=== PATIENT | male | born 1935 | race Hispanic/Latino ===

== ENCOUNTER 2016-06-21 17:06 | Inpatient (IN) | payer MEDICARE ==
[2016-06-21 17:12] VITALS: BMI 32.2
--- NOTE | 2016-06-21 17:23 | ED PDOC ---
Arrival/HPI - General Historian: Patient, Spouse - General Chief Complaint: Altered Mental Status Time Seen by Provider: 06/21/16 17:22 - History of Present Illness Narrative History of Present Illness (Text): 06/21/16 17:29 81 yo M w h/o HTN and Alzhemer's dementia, recently diagnosed a fib presents to ER, brought in by his and son, with c/o AMS. Patient's and son state he has been increasingly confused, weak, unable to care for himself, decreased appetite, some aggressive and impulsive behavior, forgetfulness x >1week. states patient has started wandering outside at night, was found in the basement in the middle of the night a few days ago, did not know how he got there. Confusion tends to be worse in the evening. Patient's states they went to see Dr. Timothy Haro 06/14, who diagnosed the patient with new onset A fib, started him on Xarelto and lopressor. Patient's gave him 2 days of these new meds last week and then decided not to continue them because she thought the medications could be making him more confused and did not want to "overdose" him. Patient reportedly complained of Chest pain yesterday once. states patient has been having productive cough and was given z-emery last week. Patient currently denies any CP, SOB, abd pain, n/v/d, fevers, chills. He denies any pain or discomfort. (Bibi Martinez) Past Medical History - Provider Review Nursing Documentation Reviewed: Yes - Travel History Have you recently traveled outside [place] w/in the past 3 mons?: No - Infectious Disease Hx of Infectious Diseases: None - Tetanus Immunization Tetanus Immunization: Unknown - Cardiac Hx Peripheral Edema: Yes - Pulmonary Hx Respiratory Disorders: No - Neurological Hx Neurological Disorder: Yes Hx Dementia: Yes - HEENT Hx HEENT Disorder: No - Renal Hx Renal Disorder: No - Endocrine/Metabolic Hx Endocrine Disorders: No - Hematological/Oncological Hx Blood Disorders: Yes Hx Cancer: Yes (prostate ca with radiation tx) - Integumentary Hx Dermatological Disorder: No - Musculoskeletal/Rheumatological Hx Musculoskeletal Disorders: Yes Hx Falls: Yes Hx Unsteady Gait: Yes - Gastrointestinal Hx Gastrointestinal Disorders: No - Genitourinary/Gynecological Hx Genitourinary Disorders: No - Psychiatric Hx Psychophysiologic Disorder: No Hx Substance Use: No - Past Surgical History Past Surgical History: Unable to Obtain - Anesthesia Hx Anesthesia: Yes Hx Anesthesia Reactions: No Hx Malignant Hyperthermia: No - Suicidal Assessment Feels Threatened In Home Enviroment: No Family/Social History - Physician Review Nursing Documentation Reviewed: Yes Family/Social History: CVA/TIA, CAD/MA Smoking Status: Current Some Days Smoker Hx Alcohol Use: No Hx Substance Use: No Allergies/Home Meds Allergies/Adverse Reactions: Allergies No Known Allergies Allergy (Verified 06/21/16 17:12) Home Medications: Home Meds Medication Instructions Recorded Confirmed Memantine [Namenda] 20 mg PO DAILY 06/21/16 06/21/16 Triamterene/Hydrochlorothiazid 1 tab PO DAILY 06/21/16 06/21/16 [Maxzide 75 mg-50 mg Tablet] Review of Systems - Physician Review All systems were reviewed & negative as marked: Yes - Review of Systems Constitutional: Normal. absent: Fatigue Eyes: Normal. absent: Vision Changes Respiratory: absent: SOB, Cough, Sputum, Wheezing Cardiovascular: absent: Palpitations, Edema, Calf Pain, FLOOD Gastrointestinal: absent: Abdominal Pain, Diarrhea, Nausea, Vomiting Genitourinary Male: absent: Dysuria, Frequency Musculoskeletal: absent: Back Pain, Neck Pain Skin: absent: Rash, Skin Lesions Neurological: absent: Headache, Dizziness, Focal Weakness Endocrine: absent: Polyuria, Polydipsia Hemo/Lymphatic: absent: Easy Bleeding, Easy Bruising Psychiatric: absent: Anxiety, Depression Physical Exam Temperature: Afebrile Blood Pressure: Normal Pulse: Tachycardic Respiratory Rate: Normal Appearance: Positive for: Well-Appearing, Comfortable Pain Distress: None Mental Status: Positive for: Alert and Oriented X 3 - Systems Exam Head: Present: Atraumatic, Normocephalic Pupils: Present: PERRL Extroacular Muscles: Present: EOMI Conjunctiva: Present: Normal, Other (slightly right lateral palsy). No: Injected, Icteric Ears: Present: Normal Mouth: Present: Dry (slightly) Neck: Present: Normal Range of Motion. No: Meningeal Signs, JVD Respiratory/Chest: Present: Clear to Auscultation, Good Air Exchange. No: Respiratory Distress, Accessory Muscle Use Cardiovascular: Present: Murmurs, Normal S1, S2, Tachycardic Abdomen: Present: Normal Bowel Sounds. No: Tenderness, Distention, Peritoneal Signs, Rebound, Guarding Upper Extremity: Present: Normal Inspection. No: Cyanosis Lower Extremity: Present: Edema (2+ BL LE pitting edema, chronic venous stasis changes, no signs of cellulitis). No: CALF TENDERNESS Neurological: Present: CN II-XII Intact Skin: Present: Warm, Dry, Normal Color Psychiatric: Present: Alert, Oriented x 3, Other (slightly confused) Vital Signs Temp Pulse Resp BP Pulse Ox 06/21/16 18:38 98.6 F 97 H 18 131/78 100 06/21/16 17:29 99.5 F 115 H 16 129/63 100 Medical Decision Making - Lab Interpretations I have reviewed the lab results: Yes - EKG Interpretation Interpreted by ED Physician: Yes Type: 12 lead EKG Comparison: Different from prev. EKG ED Course and Treatment: Patient Seen With Resident: In agreement with resident note. Patient was seen and evaluated with resident, came up with plan and treatment together. EXAM: CT Angiography Chest With Intravenous Contrast FINDINGS: Artifacts: Motion artifact. Pulmonary arteries: No pulmonary embolism is identified. Some of the distal pulmonary arteries are poorly visualized. Aorta: No acute findings. No thoracic aortic aneurysm. Lungs: There is flattening of the right mainstem bronchus and to a lesser extent the left mainstem bronchus suggesting bronchomalacia. Compressive atelectasis in the posterior left lung. Pleural space: Large left pleural effusion. Heart: Moderate-sized pericardial effusion. Bones/joints: Spondylotic changes thoracic spine. No acute fracture. No dislocation. Soft tissues: Unremarkable. Lymph nodes: Unremarkable. No enlarged lymph nodes. Liver: Hepatic cysts. Some of the low attenuation foci in the liver are too small to characterize. Intraperitoneal space: Small amount of free fluid in the visualized upper abdomen. IMPRESSION: 1. No pulmonary embolism is identified. Some of the distal pulmonary arteries are poorly visualized. 2. Large left pleural effusion. 3. Moderate-sized pericardial effusion. 4. There is flattening of the right mainstem bronchus and to a lesser extent the left mainstem bronchus suggesting bronchomalacia. Dictated and Authenticated by: Tony Doty MD 06/21/2016 9:57 PM Eastern Time ([place] & [place]) (Jules Payne) 06/21/16 17:44 81 yo M w h/o HTN, new onset a fib not on AC presents with worsening AMS. CT head, CXR, labs, d-dimer. 06/21/16 19:31 D-dimer elevated at 4.79. CTA chest to r/o PE. GFR has not changed since 2014. RLL infiltrate on CXR - will start azithromycin and Rocephin. Dr. Payne spoke with Dr. Thornton, who accepts admission to her service. 06/21/16 22:04 CTA chest shows no PE. (Bibi Martinez) - Lab Interpretations Lab Results: 06/21/16 17:25 06/21/16 17:25 Lab Results 06/21/16 17:25: pO2 40, VBG pH 7.31 L, VBG pCO2 58.0, VBG HCO3 29.2 H, VBG Total CO2 31.0 H, VBG O2 Sat (Calc) 75.6 H, VBG Base Excess 1.6, VBG Potassium 4.3, Sodium 138.0, Chloride 107.0, Glucose 108, Lactate 0.9, FiO2 21.0, Venous Blood Potassium 4.3 06/21/16 17:25: D-Dimer, Quantitative 4.97 H 06/21/16 17:25: PT 12.3 H, INR 1.14 H, APTT 33.8 H 06/21/16 17:25: Sodium 140, Chloride 102, Potassium 4.2, Carbon Dioxide 28, Anion Gap 14, BUN 34 H, Creatinine 1.4, Est GFR ( Amer) 59, Est GFR (Non- Af Amer) 49, Random Glucose 106, Calcium 9.5, Total Bilirubin 1.0, AST 20, ALT 41, Alkaline Phosphatase 139 H, Troponin I < 0.01, Total Protein 7.0, Albumin 3.5, Globulin 3.5, Albumin/Globulin Ratio 1.0 L 06/21/16 17:25: WBC 7.3 D, RBC 3.62, Hgb 10.5 L, Hct 32.8 L, MCV 90.6, MCH 29.0 , MCHC 32.0, RDW 13.8, Plt Count 344, MPV 10.6, Gran % 75.1 H, Lymph % (Auto) 11.9 L, Grant % (Auto) 12.5 H, Eos % (Auto) 0.4 L, Baso % (Auto) 0.1, Gran # 5.51 , Lymph # 0.9 L, Grant # 0.9 H, Eos # 0.0, Baso # 0.01 06/21/16 17:19: POC Glucose (mg/dL) 103 - RAD Interpretation Radiology Orders: 06/21/16 17:23 HEAD W/O CONTRAST [CT] Stat CHEST PORTABLE [RAD] Stat 06/21/16 18:38 ANGIO CHEST PE PROTOCOL [CT] Stat - EKG Interpretation EKG Interpretation (Text): 06/21/16 21:38 A fib 96 bpm. Incomplete RBBB similar to EKG 2014. QT/QTc 318/401ms. T wave inversions II, III, aVF. (Bibi Martinez) - Medication Orders Current Medication Orders: Discontinued Medications Sodium Chloride (Sodium Chloride 0.9%) 1,000 mls @ 999 mls/hr IV .Q1H1M STA Stop: 06/21/16 18:45 Last Admin: 06/21/16 17:53 Dose: 999 mls/hr Ceftriaxone Sodium (Rocephin 1 Gram Ivpb) 1 gm in 100 mls @ 200 mls/hr IVPB STAT STA PRN Reason: Protocol Stop: 06/21/16 19:06 Last Admin: 06/21/16 18:44 Dose: 200 mls/hr Azithromycin (Zithromax 500mg In Ns) 500 mg in 250 mls @ 167 mls/hr IVPB STAT STA PRN Reason: Protocol Stop: 06/21/16 20:06 Iohexol (Omnipaque 350 150 Ml) Confirm Administered Dose 150 ml .ROUTE .K-MED ONE Stop: 06/21/16 19:47 Disposition/Present on Arrival - Present on Arrival Any Indicators Present on Arrival: No History of DVT/PE: No History of Uncontrolled Diabetes: No Urinary Catheter: No History of Decub. Ulcer: No History Surgical Site Infection Following: None - Disposition Have Diagnosis and Disposition been Completed?: Yes Disposition Time: 19:34 Patient Plan: Admission - Disposition Diagnosis: Pneumonia, Atrial fibrillation, Altered mental status Patient Problems: Current Active Problems Problem Status Onset Pneumonia Acute Atrial fibrillation Acute Altered mental status Acute Condition: SERIOUS
[2016-06-21 17:45] LABS: ADD MANUAL DIFF? NO
[2016-06-21] MEDS ORDERED: Sodium Chloride 0.9% 1,000 ML IV STA (17:45)
[2016-06-21 17:52] LABS: VENOUS BLOOD GAS BASE EXCESS 1.6 mmol/L (0.0-2.0); VENOUS BLOOD PH 7.31 (7.32-7.43)
[2016-06-21 18:02] LABS: ALKALINE PHOSPHATASE 139 U/L (38-133); ALT/SGPT 41 U/L (7-56); AST/SGOT 20 U/L (15-59); BLOOD UREA NITROGEN 34 mg/dL (7-21); CALCIUM 9.5 mg/dL (8.4-10.5); CARBON DIOXIDE 28 mmol/L (21-33); CHLORIDE 102 mmol/L (98-107); GFR AFRICAN-AMERICAN 59; GLUCOSE,RANDOM 106 mg/dL (70-110); POTASSIUM 4.2 mmol/L (3.6-5.0); SODIUM 140 mmol/L (132-148)
[2016-06-21 18:13] LABS: BASO # 0.01 K/mm3 (0.0-2.0); BASO % 0.1 % (0.0-3.0); EOS % 0.4 % (1.5-5.0); GRAN # 5.51 (1.4-6.5); GRAN % 75.1 % (50.0-68.0); HEMATOCRIT 32.8 % (42.0-52.0); LYMPH # 0.9 (1.2-3.4); LYMPH % 11.9 % (22.0-35.0); MEAN CELL VOLUME 90.6 fL (80.0-105.0); MEAN PLATELET VOLUME 10.6 fl (7.0-11.0); MONO # 0.9 (0.1-0.6); MONO % 12.5 % (1.0-6.0); PLATELET COUNT 344 10^3/uL (120.0-450.0); RED CELL DISTRIBUTION WIDTH 13.8 % (11.5-14.5); WHITE BLOOD COUNT 7.3 10^3/ul (4.5-11.0)
--- NOTE | 2016-06-21 18:17 | CT ---
PROCEDURE: CT HEAD WITHOUT CONTRAST. HISTORY: AMS COMPARISON: Noncontrast head CT performed 09/01/14, MR brain without contrast performed 09/01/14 TECHNIQUE: Axial computed tomography images were obtained through the head/brain without intravenous contrast. Radiation dose: Total exam DLP = 774.23 mGy-cm. This CT exam was performed using one or more of the following dose reduction techniques: Automated exposure control, adjustment of the mA and/or kV according to patient size, and/or use of iterative reconstruction technique. FINDINGS: Streak artifact obscures evaluation of the skullbase. HEMORRHAGE: No intracranial hemorrhage. BRAIN: Diffuse atrophy with prominence of the ventricles and sulci noted. No mass effect or edema. Dense intracranial atherosclerotic calcifications. Scattered periventricular and subcortical white matter hypodensities, which are nonspecific, but often seen with chronic microvascular ischemic disease. Please note that MRI with diffusion imaging is more sensitive in the detection of acute ischemic event. VENTRICLES: No hydrocephalus. CALVARIUM: Unremarkable. PARANASAL SINUSES: Complete opacification of the imaged portions, right maxillary sinus ; sinus contents appear heterogeneous. MASTOID AIR CELLS: Unremarkable as visualized. No inflammatory changes. OTHER FINDINGS: None. IMPRESSION: Streak artifact obscures evaluation of the skullbase. Generalized atrophy. Nonspecific white matter changes. Complete opacification of the imaged portions, right maxillary sinus ; sinus contents appear heterogeneous. Increased attenuation of the sinus contents may indicate proteinaceous material or fungal colonization. Please note that MRI with diffusion imaging is more sensitive in the detection of acute ischemic event.
[2016-06-21 18:30] LABS: TROPONIN I < 0.01 ng/mL
[2016-06-21] MEDS ORDERED: cefTRIAXone 1 gm 1 GM/100 ML BAG IVPB STA (18:37)
[2016-06-21] MEDS ORDERED: Azithromycin 500MG/NS 250ml 500 MG/250 ML BAG IVPB STA (18:37)
--- NOTE | 2016-06-21 18:56 | CARD ---
APPROVED REPORT EKG Measurement Heart [id number] <Conclusion> Atrial fibrillation Incomplete right bundle branch block Nonspecific ST and T wave abnormality, probably digitalis effect Abnormal ECG
[2016-06-21 19:54] LABS: INR 1.14 (0.93-1.08); PARTIAL THROMBOPLASTIN TIME 33.8 Seconds (23.7-30.8)
[2016-06-21 20:27] LABS: URINE APPEARANCE CLEAR (CLEAR); URINE BILIRUBIN NEGATIVE (NEGATIVE); URINE BLOOD NEGATIVE (NEGATIVE); URINE COLOR YELLOW (YELLOW); URINE GLUCOSE (UA) NEGATIVE (NEGATIVE); URINE KETONE NEGATIVE (NEGATIVE); URINE LEUKOCYTE ESTERASE NEGATIVE Leu/uL (NEGATIVE); URINE PROTEIN TRACE mg/dL (<30 mg/dL)
[2016-06-21 21:09] LABS: URINE AMORPHOUS SEDIMENT SMALL; URINE BACTERIA MOD (NEG); URINE RBC 0 - 2 /hpf (0-2); URINE WBC 0 - 2 /hpf (0-6)
[2016-06-21] MEDS ORDERED: Albuterol-Ipratrop 3 mg / 0.5 (3 ml) UD IH PRN (22:21)
[2016-06-21] MEDS ORDERED: Pneumococcal 23-Valent Vaccine IM ONE (22:52)
[2016-06-22 00:46] LABS: CHOLESTEROL 115 mg/dL (130-200)
[2016-06-22 01:19] LABS: TROPONIN I < 0.01 ng/mL
[2016-06-22] MEDS: Albuterol-Ipratrop 3 mg / 0.5 (3 ml) UD IH SCH ×2 (02:17→07:53)
[2016-06-22 07:19] LABS: ADD MANUAL DIFF? NO
[2016-06-22 07:27] LABS: BASO # 0.02 K/mm3 (0.0-2.0); BASO % 0.4 % (0.0-3.0); EOS % 0.4 % (1.5-5.0); GRAN % 70.8 % (50.0-68.0); HEMATOCRIT 31.4 % (42.0-52.0); LYMPH # 0.9 (1.2-3.4); LYMPH % 16.7 % (22.0-35.0); MEAN CORPUSCULAR HEMOGLOBIN 28.7 pg (25.0-35.0); MEAN CORPUSCULAR HGB CONC 31.8 g/dl (31.0-37.0); MEAN PLATELET VOLUME 10.1 fl (7.0-11.0); MONO # 0.7 (0.1-0.6); MONO % 11.7 % (1.0-6.0); PLATELET COUNT 306 10^3/uL (120.0-450.0); RED CELL DISTRIBUTION WIDTH 13.9 % (11.5-14.5); WHITE BLOOD COUNT 5.6 10^3/ul (4.5-11.0)
--- NOTE | 2016-06-22 07:53 | HP ---
HISTORY OF PRESENT ILLNESS: The patient is 81 years old with history of dementia. History taken fro m the family member. They state that he has been increasingly confused. He was recently seen by his primary care doctor and yeast stacker in the office, and he was found to have a new onset of irregula r heartbeat, that is AFib, so he was started on Xarelto and Lopressor. The patient she gave th is medication for 2 days. She thought that has increased his confusion so she stopped giving that me dication also. They did notice that he has low-grade fever and when he mentioned to the primary care doctor who gave Z-JADEN 1 week ago. He still has cough and congestion. Denies any chest pain. No sh ortness of breath. No nausea or vomiting. No history of diarrhea. No recent travel abroad. PAST MEDICAL HISTORY: Significant for: 1. Dementia. 2. Hypertension. 3. New onset of AFib. 4. Generalized osteoarthritis. ALLERGIES: He is not allergic to any medications. MEDICATIONS AT HOME: He is on Namenda 20 mg daily and Maxzide. SOCIAL HISTORY: He is , lives with his . Still smokes cigars here and there. Socially d rinks occasionally . REVIEW OF SYSTEMS: Significant for increasing confusion, mostly in the evening hours; complain t of shortness of breath. PHYSICAL EXAMINATION: GENERAL: He is awake and alert, somewhat forgetful. VITAL SIGNS: He is afebrile, pulse 97, respirations 18, blood pressure 131/78. LUNGS: Bilateral fair air flow in the upper lung region, decreased at right base. HEART: S1, S2 audible. ABDOMEN: Soft, nontender, no rebound, no guarding. NEUROLOGIC: The patient is awake and alert. LABORATORY DATA: WBC 7.3, hemoglobin 10.5, hematocrit 3 .8, platelets 344. PT 12.3, INR 1.14, PTT 33.8. D-Dimer 4.97. His ABG: pH 7.31, pCO2 58, pulse ox 75%. Chemistry: Sodium 140, potassi um 4.2, chloride 102, CO2 28, BUN 34, creatinine 1.4, blood sugar 106. LFTs are within normal limits . Alk phos 138. Urinalysis is unremarkable. His EKG is consistent with AFib. CT scan of the head: evaluation of the skull base, generalized atrophy, nonspecific white matter changes, and right maxillary sinus haziness. The patient had stress test done back in 09/2014 and it was negative. ASSESSMENT: 1. Altered mental status. 2. Community-acquired pneumonia. 3. Hypertension. 4. New onset of atrial fibrillation. PLAN: The patient will be admitted on telemetry. We will start him on aspirin 81 daily. Start him on nebulizer treatment. Continue him on Eliquis 2.5 b.i.d., Namenda 20 daily. We will start him on Rocephin and Zithromax. Order for CBC, CMP, thyroid profile, lipid profile in a.m., and I will also get CT scan of the sinuses and we will re-evaluate the patient in a.m. Sarah Thornton MD cc: [phone] TT: 06/22/2016 01:09:29 ak 06/22/2016 06:52:39
[2016-06-22 07:55] LABS: ALKALINE PHOSPHATASE 120 U/L (38-133); ALT/SGPT 34 U/L (7-56); AST/SGOT 20 U/L (15-59); BILIRUBIN,TOTAL 0.8 mg/dL (0.2-1.3); BLOOD UREA NITROGEN 26 mg/dL (7-21); CALCIUM 9.3 mg/dL (8.4-10.5); CARBON DIOXIDE 28 mmol/L (21-33); CHLORIDE 103 mmol/L (98-107); GFR AFRICAN-AMERICAN > 60; GLUCOSE,RANDOM 92 mg/dL (70-110); MAGNESIUM 2.2 mg/dL (1.7-2.2); PHOSPHOROUS 3.8 mg/dL (2.5-4.5); POTASSIUM 3.7 mmol/L (3.6-5.0); SODIUM 140 mmol/L (132-148); TOTAL PROTEIN 6.5 g/dL (5.8-8.3)
[2016-06-22 07:57] LABS: FREE T4 1.57 ng/dL (0.78-2.19)
[2016-06-22 08:10] LABS: PROSTATE SPECIFIC ANTIGEN 0.1 ng/mL (0.00-2.5); THYROID STIMULATING HORMONE 0.52 mIU/mL (0.46-4.68)
--- NOTE | 2016-06-22 08:24 | CT ---
PROCEDURE: CT Chest with contrast (Pulmonary Angiogram) HISTORY: D-dimer, pleuritic CP COMPARISON: None available. TECHNIQUE: Axial computed tomography images were obtained of the chest in the pulmonary arterial phase of enhancement. Coronal and sagittal reformatted images were created and reviewed. Intravenous contrast dose: 150 cc of Omni 350 Radiation dose: Total exam DLP = 765 mGy-cm. This CT exam was performed using one or more of the following dose reduction techniques: Automated exposure control, adjustment of the mA and/or kV according to patient size, and/or use of iterative reconstruction technique. FINDINGS: PULMONARY ARTERIES: Unremarkable. No pulmonary embolism. AORTA: No acute findings. No thoracic aortic aneurysm. LUNGS: Unremarkable. No nodule, mass or pulmonary consolidation. PLEURAL SPACES: There is a moderate size left pleural effusion and a small right effusion. There is some associated atelectasis at the left lung base. HEART: There is a small pericardial effusion LYMPH NODES: No lymphadenopathy. BONES, CHEST WALL: Unremarkable. No fracture or destructive lesion OTHER FINDINGS: The report concurs with the preliminary [facility] report IMPRESSION: No evidence of pulmonary embolus. Moderate size pleural effusion on the left with associated atelectasis. Small pericardial effusion
[2016-06-22] MEDS: Metoprolol Succinate 25 mg XL Tab PO SCH (08:26)
--- NOTE | 2016-06-22 08:35 | RAD ---
HISTORY: CP COMPARISON: 09/01/2014 FINDINGS: LUNGS: Opacity at left base. Possible pleural effusion and possible superimposed consolidation. Evaluation is technically limited. No right-sided opacity or pleural effusion. PLEURA: As above. Possible left pleural effusion. CARDIOVASCULAR: Normal. OSSEOUS STRUCTURES: No significant abnormalities. VISUALIZED UPPER ABDOMEN: Normal. OTHER FINDINGS: None. IMPRESSION: Pleural effusion with possible superimposed consolidation at left base. Technically limited examination. Followup advised.
[2016-06-22] MEDS ORDERED: Azithromycin 500MG/NS 250ml 500 MG/250 ML BAG IVPB SCH (10:00)
--- NOTE | 2016-06-22 12:33 | PN ---
DATE: 06/22/2016 SUBJECTIVE: The patient is a 81-year-old, seen and examined, sitting in chair, somewhat confused and disoriented. Eating and tolerating. No cough, no congestion. PHYSICAL EXAMINATION: VITAL SIGNS: The patient is afebrile, pulse 94, respirations 18, blood pressure 117/72. LUNGS: Bilateral fair airflow. No rhonchi or crackle. HEART: S1, S2 audible. ABDOMEN: Soft, nontender. No rebound, no guarding. NEUROLOGIC: He is awake and alert, able to answer simple questions. EXTREMITIES: Bilateral leg +2 edema. LABORATORY EXAMINATION: WBC is 5.6, hemoglobin 10, hematocrit 31.4, platelets of 306. Chemistry: S odium 140, potassium 3.7, chloride 103, CO2 of 28, BUN 26, creatinine 1.2, blood sugar of 92. Total cholesterol is 115. CT-angio is negative for embolus or infiltrate. ASSESSMENT: 1. Altered mental status, probably underlying dementia. 2. History of atrial fibrillation. 3. Bilateral pleural effusion. 4. History of hypertension. PLAN: We will continue the patient on aspirin and nebulizer treatment. Continue on Eliquis. We pratik l follow the urine cultures and blood cultures. Continue on Rocephin. I am awaiting MRI report. I will request for TCU evaluation for physical therapy, and start him on low-dose diuretic for his bila teral leg edema, and order for leg Doppler to rule out DVT. Sarah Thornton MD cc: [phone] TT: 06/22/2016 12:32:35 Confirmation # [id number] Dictation # [id number] melanie
[2016-06-22] MEDS: cefTRIAXone 1 gm 1 GM/100 ML BAG IVPB SCH (14:20)
--- NOTE | 2016-06-22 14:24 | MRI ---
PROCEDURE: MRI BRAIN WITHOUT CONTRAST HISTORY: AMS new onset AFIB COMPARISON: 09/01/2014 TECHNIQUE: Multiplanar, multisequence MR images of the brain were obtained without intravenous contrast enhancement. FINDINGS: HEMORRHAGE: There is a small focal deposits of hemosiderin in the left cerebellar hemisphere measuring 4 mm in diameter. This is consistent with an old hemorrhage or cavernous angioma. This is not clinically significant. This is unchanged DWI: No evidence of an acute or early subacute infarction. BRAIN PARENCHYMA: No mass effect or edema. No atrophy or chronic microvascular ischemic changes. VENTRICLES: Unremarkable. No hydrocephalus. CRANIUM: Unremarkable. ORBITS: Grossly unremarkable. PARANASAL SINUSES/MASTOIDS: There is complete opacification of the right maxillary sinus VASCULAR SYSTEM: Skull base flow voids intact. OTHER FINDINGS: None. IMPRESSION: No acute intracranial findings
--- NOTE | 2016-06-22 18:52 | CON ---
DATE: 06/22/2016 REASON FOR CONSULTATION: Recent onset atrial fibrillation. HISTORY OF PRESENT ILLNESS: The patient is a 81-year-old male who has a history of dementia, was rec ently diagnosed with atrial fibrillation and was placed on Xarelto by the primary physician 3 days ag o. The patient has been experiencing worsening of his confusion state over the past few days and on and off he becomes extremely confused. The patient was treated as an outpatient for pneumonia and wa s placed on Z-Nam; however, the patient was brought to the Emergency Room because of his worsening me ntal condition. The patient did report to the primary physician low grade fever as an outpatient. SOCIAL HISTORY: The patient is a smoker and he drinks occasionally according to the . The histo ry was obtained from the family including the and son and family friend at the bedside. HOME MEDICATIONS: Include: Lopressor, Xarelto, Bactrim and Namenda. CURRENT HOSPITAL MEDICATIONS: Aspirin 81 mg once a day, Eliquis 2.5 mg twice a day, Lasix 40 mg intr avenously once a day, Namenda 20 mg once a day, Rocephin 1 gram intravenously daily, Toprol-XL 25 mg once a day. REVIEW OF SYSTEMS: No vomiting or diarrhea, no chest pain, no history of stroke in the past and no h istory of heart attack in the past. PHYSICAL EXAMINATION: GENERAL: The patient is an elderly male who does not appear to be in acute distress. VITAL SIGNS: Blood pressure 125/82, heart rate 100, temperature 98.4, respiration 18. HEENT: Pale conjunctivae. NECK: No JVD. CHEST: Minimal rhonchi, . HEART: S1, S2 regular. ABDOMEN: Soft. EXTREMITIES: 2-3+ pitting edema. LABORATORY DATA: Hemoglobin and hematocrit 10 and 31.4, white count and platelet count 5.6 and 306, respectively. SMA-7 is within normal limits except for BUN of 26. TSH level is within normal limits . Free T4 is within normal limits. D-dimer is 4.97. INR is 1.14. Brain MRI revealed no acute intr acranial findings. Chest CT angio, no evidence of pulmonary embolus, moderate size pleural effusion on the left associated with atelectasis. Small pericardial effusion. EKG revealed atrial fibrillati on, incomplete right bundle branch block and nonspecific ST-T wave changes. ASSESSMENT: 1. Recent diagnosis of atrial fibrillation. 2. Altered mental status, rule out underlying sepsis. 3. Left pleural effusion. 4. Dementia. RECOMMENDATIONS: Continue current aspirin 81 mg once a day, Eliquis 2.5 mg twice a day, Lasix 40 mg intravenous once a day, Namenda 20 mg once a day, IV Rocephin at 1 gram daily, Toprol-XL 25 mg once a day. I will request an echocardiogram as well as venous Doppler of the lower extremities. The say hutson was discussed in details with the patient's and son at the bedside. Nishant Del Castillo MD cc: [id number] TT: 06/22/2016 18:51:28 Confirmation # [id number] Dictation # [id number] dn
[2016-06-23 06:53] LABS: ADD MANUAL DIFF? NO
[2016-06-23 07:15] LABS: ALKALINE PHOSPHATASE 120 U/L (38-133); ALT/SGPT 32 U/L (7-56); AST/SGOT 17 U/L (15-59); BASO # 0.02 K/mm3 (0.0-2.0); BASO % 0.4 % (0.0-3.0); BILIRUBIN,TOTAL 0.9 mg/dL (0.2-1.3); BLOOD UREA NITROGEN 25 mg/dL (7-21); CALCIUM 9.3 mg/dL (8.4-10.5); CARBON DIOXIDE 30 mmol/L (21-33); CHLORIDE 101 mmol/L (98-107); EOS % 0.7 % (1.5-5.0); GFR AFRICAN-AMERICAN > 60; GLUCOSE,RANDOM 90 mg/dL (70-110); GRAN # 3.46 (1.4-6.5); GRAN % 64.7 % (50.0-68.0); HEMATOCRIT 32.2 % (42.0-52.0); LYMPH # 1.2 (1.2-3.4); LYMPH % 22.6 % (22.0-35.0); MEAN CELL VOLUME 89.4 fL (80.0-105.0); MEAN CORPUSCULAR HEMOGLOBIN 28.6 pg (25.0-35.0); MEAN PLATELET VOLUME 10.2 fl (7.0-11.0); MONO # 0.6 (0.1-0.6); MONO % 11.6 % (1.0-6.0); PLATELET COUNT 316 10^3/uL (120.0-450.0); RED CELL DISTRIBUTION WIDTH 13.5 % (11.5-14.5); SODIUM 141 mmol/L (132-148); TOTAL PROTEIN 6.6 g/dL (5.8-8.3); WHITE BLOOD COUNT 5.4 10^3/ul (4.5-11.0)
[2016-06-23 07:27] LABS: POTASSIUM 4.1 mmol/L (3.6-5.0)
[2016-06-23] MEDS: Metoprolol Succinate 25 mg XL Tab PO SCH (08:26)
[2016-06-23] MEDS: cefTRIAXone 1 gm 1 GM/100 ML BAG IVPB SCH (09:42)
--- NOTE | 2016-06-23 13:15 | PN ---
DATE: 06/23/2016 The patient is a 81-year-old, seen and examined, lying in bed, seems to be comfortable. He is more a wake and alert, but somewhat confused. PHYSICAL EXAMINATION: VITAL SIGNS: He is afebrile, pulse 90, respirations 19, blood pressure 116/79. LUNGS: Bilateral good airflow, no rhonchi or crackle. HEART: S1, S2 audible. ABDOMEN: Soft, nontender, no rebound, no guarding. NEUROLOGIC: He is awake and alert, communicative. LABORATORY EXAMINATION: WBCs 5.4, hemoglobin 10.3, hematocrit 32, platelets 316. Chemistry: Sodium 141, potassium 4.1, chloride 101, CO2 30, BUN 25, creatinine 1.2, blood sugar of 90. Blood culture, urine cultures are negative. MRI of the brain is unremarkable. CT scan of the chest shows atelecta sis with a small pleural effusion. ASSESSMENT: 1. Status post altered mental status. 2. New onset of atrial fibrillation. 3. Dementia. 4. Deconditioning and difficulty walking. PLAN: I had a long discussion with patient's . She wants him to be in rehabilitation. She also wants him to be seen by electric razor mechanic and neurologist, so Dr. Yuen has been requested upon patien t's family's request and Dr. Veronica to follow up for his dementia. I will order for lipid profile an d B12 levels in the morning and TCU evaluation has been requested. If he is accepted, he can be de paz sferred to TCU. Sarah Thornton MD cc: [phone] TT: 06/23/2016 13:15:15 Confirmation # [id number] Dictation # [id number] en
--- NOTE | 2016-06-23 16:08 | PN ---
DATE: 06/23/2016 SUBJECTIVE: The patient is sleepy, but arousable. He denies any chest pain. PHYSICAL EXAMINATION: VITAL SIGNS: Blood pressure 116/79, heart rate 90, temperature 97.7, respirations 19. HEENT: Pale conjunctivae. CHEST: Absent breath sounds over the bases. HEART: S1, S2 irregular. EXTREMITIES: 2+ pitting edema. LABORATORIES: CBC: Hemoglobin and hematocrit 10.3 and 32.2. White count and platelet count are wit hin normal limit. Venous Doppler of lower extremity was performed but the report is still pending. Today's SMA-7 is within normal limits except for BUN of 25. Carotid Doppler was performed but the re port is still pending. ASSESSMENT: 1. Recently diagnosed atrial fibrillation. 2. Rule out congestive heart failure. 3. Altered mental status. 4. Consider underlying significant left pleural effusion. RECOMMENDATIONS: Continue current aspirin 81 mg once a day, Eliquis 2.5 mg twice daily, Lasix at 40 mg intravenously daily, IV Rocephin at 1 gram daily, Toprol-XL at 25 mg once a day. I would review t he echocardiographic study performed today and follow both carotid Doppler and venous Doppler of the lower extremities. In the meantime, the has requested Dr. Yuen to be the consulting cardiol ogist. Nishant Del Castillo MD cc: [phone] TT: 06/23/2016 16:07:20 Confirmation # [id number] Dictation # [id number] mn
--- NOTE | 2016-06-23 16:22 | CARD ---
APPROVED REPORT EXAM: Two-dimensional and M-mode echocardiogram with Doppler and color Doppler. INDICATION Atrial Fibrillation 2D DIMENSIONS Left Atrium (2D)4.5 (1.6-4.0cm)IVSd0.9 (0.7-1.1cm) LVDd4.7 (3.9-5.9cm)PWd1.0 (0.7-1.1cm) LVDs3.5 (2.5-4.0cm)FS (%) 26.8 % M-Mode DIMENSIONS Aortic Root3.50 (2.2-3.7cm)Aortic Cusp Exc.1.70 (1.5-2.0cm) Aortic Valve AoV Peak Cmukvqbc673.0cm/Polina Peak GR.9mmHgAI P 1/2 Hexd870re Mitral Valve E/A ratio0.0 TDI E/Lateral E'0.0E/Medial E'0.0 Pulmonary Valve PV Peak Mdswxufp71.4cm/sPV Peak Grad.1mmHg Tricuspid Valve TR Peak Tfeebgfo768yv/sRAP [id number] Peak Gr.17mmHg [id number] LEFT VENTRICLE The left ventricle is normal size. There is normal left ventricular wall thickness. The systolic function is mildly to moderately impaired. The Ejection Fraction is 40-45%. Septal Hypokinesis RIGHT VENTRICLE The right ventricle is borderline dilated. There is normal right ventricular wall thickness. RV Systolic function is moderately reduced. ATRIA The left atrium is moderately dilated. The right atrium is moderately dilated. AORTIC VALVE The aortic valve is moderately thickened. There is mild aortic regurgitation. MITRAL VALVE The mitral valve is mildly thickened. Mitral regurgitation is mild. GREAT VESSELS The aortic root is normal in size. PERICARDIAL EFFUSION There is moderate left pleural effusion. There is a trace circumferential pericardial effusion. <Conclusion> The left ventricle is normal size. There is normal left ventricular wall thickness. The systolic function is mildly to moderately impaired. The Ejection Fraction is 40-45%. Septal Hypokinesis RV Systolic function is moderately reduced. There is mild aortic regurgitation. Mitral regurgitation is mild.
--- NOTE | 2016-06-23 17:01 | US ---
HISTORY: Leg pain and swelling. Evaluate for DVT PHYSICIAN(S): Obi Dhaliwal MD. TECHNIQUE: Duplex sonography and color-flow Doppler with graded compression were used to evaluate the deep venous systems of both lower extremities. The exam is limited by the patient's inability to cooperate and edema FINDINGS: The visualized deep venous systems of both lower extremities are sonographically normal and compressible. Normal wave forms and augmentation are seen. There is no sonographic evidence for deep venous thrombosis in the visualized segments of both lower extremities. IMPRESSION: No sonographic evidence for deep venous thrombosis in the visualized segments of both lower extremities.
--- NOTE | 2016-06-23 17:03 | US ---
PROCEDURE: Bilateral carotid artery duplex ultrasound HISTORY: Carotid stenosis syncope PHYSICIAN(S): Obi Dhaliwal MD. TECHNIQUE: Duplex sonography and color-flow Doppler were used to evaluate the carotid bifurcations and limited segments of the vertebral arteries bilaterally. FINDINGS: There is mild smooth heterogeneous plaque noted at the carotid bifurcations bilaterally. The peak systolic velocity in the proximal right internal carotid artery is 73 cm/sec. This corresponds to a 20 to 39% proximal right ICA stenosis. Normal systolic velocities are noted in the proximal right external carotid artery. There is antegrade flow in the right vertebral artery. The peak systolic velocity in the proximal left internal carotid artery is 53 cm/sec. This corresponds to a 20 to 39% proximal left ICA stenosis. Normal systolic velocities are noted in the proximal left external carotid artery. There is antegrade flow in the left vertebral artery. IMPRESSION: 1. Bilateral 20-39% proximal ICA stenoses. 2. Antegrade flow in both vertebral arteries.
--- NOTE | 2016-06-23 19:58 | CON ---
DATE: 06/23/2016 HISTORY OF PRESENT ILLNESS: This is a 81-year-old male with past medical history of hypertension, ne w onset AFib, arthritis, and dementia, who was recently seen in the office. The patient went to card iologist's office and found irregular heartbeat and was started on Xarelto and Lopressor. I was call ed to evaluate the patient. PAST MEDICAL HISTORY: Dementia, hypertension, AFib, arthritis. ALLERGIES: Not allergic to any medications. PHYSICAL EXAMINATION: HEENT: Normocephalic, atraumatic. NECK: Supple. NEUROLOGIC: Alert, awake, oriented x 3. Cranial nerves II through XII were tested. Pupils reactive . EOM intact. Visual gerber full. No facial asymmetry. Tongue midline. Motor examination: Moves all the extremities spontaneously. Deep tendon reflexes 1+. Both plantars are downgoing. Sensory appears intact. Cerebellar: Gait deferred. IMPRESSION: Dementia. The patient is with agitation so we will start Seroquel [address] [facility]. CAT scan and MRI of the head was done and they were negative. PLAN: Workup in progress. We will follow up. Mark Veronica MD cc: [phone] TT: 06/23/2016 19:58:04 Confirmation # [id number] Dictation # [id number] sn
[2016-06-24 07:34] VITALS: PULSE 63; RESP 18; TEMP 98.4; O2SAT 100
[2016-06-24 07:39] LABS: CHOLESTEROL 125 mg/dL (130-200)
[2016-06-24] MEDS: cefTRIAXone 1 gm 1 GM/100 ML BAG IVPB SCH (10:45)
[2016-06-24] MEDS: Metoprolol Succinate 25 mg XL Tab PO SCH (10:46)
[2016-06-24 11:01] VITALS: BP 119/70
--- NOTE | 2016-06-24 14:31 | CON ---
DATE: 06/24/2016 REQUESTING PHYSICIAN: Dr. Thornton. REASON FOR CONSULTATION: Recent onset atrial fibrillation. HISTORY OF PRESENT ILLNESS: This is a 81-year-old man with a history of moderate dementia who was br ought to the Emergency Room because of worsening confusion and weakness. He reportedly also has had a productive cough. His primary care physician is Dr. Cooley. According to the chart, he was seen by Dr. Aguirre as an outpatient recently and found to be in atrial fibrillation. He was started on metoprolol and Xarelto. Family felt that these medications were increasing his confusion and became concerned. He is seen on remote telemetry, resting comfortably in bed. He is seen at the request o f his family. He is conversant and answers questions appropriately, but cannot recall all details of his past history. Most of that is obtained via the chart. PAST MEDICAL HISTORY: Notable for prostate cancer requiring radiation therapy. He also has a histor y of arthritis and hypertension. MEDICATIONS: At home included metoprolol 25 mg b.i.d., Namenda 10 mg b.i.d., Dyazide 3 times a week, Xarelto 15 mg daily. ALLERGIES: None. SOCIAL HISTORY: He is an active smoker. He denies alcohol use. He is and lives with his wi fe. He is retired. FAMILY HISTORY: Both parents are from cancer. Full details are unclear. REVIEW OF SYSTEMS: Ten point review of systems is otherwise unremarkable. PHYSICAL EXAMINATION: GENERAL: He is an elderly man who appears comfortable at rest. VITAL SIGNS: His blood pressure is 120/70 with a pulse of 60 and irregularly irregular, respirations are 14 and he is afebrile. HEENT: Normocephalic, atraumatic. NECK: Supple, no JVD noted. CHEST: Bilateral scattered rhonchi heard. HEART: PMI in normal position. A systolic murmur is noted at the base as well as at the apex. ABDOMEN: Soft, nontender with normoactive bowel sounds. EXTREMITIES: No edema. SKIN: Warm and dry. PSYCHIATRIC: Normal mood and affect. NEUROLOGIC: Somewhat flat affect. Oriented to person, place and time. No gross motor or sensory de ficits appreciable. DIAGNOSTIC DATA: Chest x-ray reveals possible left infiltrate as well as a left pleural effusion. E lectrocardiogram reveals atrial fibrillation with nonspecific intraventricular conduction delay and n onspecific ST-T abnormalities. A carotid ultrasound revealed mild bilateral ICA stenosis. Echocardi ogram reportedly showed mildly reduced LV systolic function with septal hypokinesis, mild aortic insu fficiency, mild mitral regurgitation and left pleural effusion. Recent blood work reveals a white co unt of 5.4, hemoglobin and hematocrit 10.2 and 32.2 with a platelet count 361,000. Potassium 4.1, BU N and creatinine are 25 and 1.2. Cholesterol 125 with a LDL of 84 and an HDL of 27. IMPRESSION: 1. Atrial fibrillation, duration uncertain, currently asymptomatic. This is likely on the basis of age and hypertensive heart disease. 2. Mild multivalvular heart disease. 3. Baseline dementia. 4. Apparent pneumonia. 5. Recent worsening confusion, etiology uncertain. Doubt any significant role of beta harley and X arelto. 6. Rest of problems as noted. RECOMMENDATIONS: His current medications should continue. He has been placed on Eliquis in hospital , which is a reasonable alternative for him. Low dose beta harley therapy should continue as well f or heart rate control. I would not make aggressive attempts at conversion to sinus rhythm given his asymptomatic status and general condition. Gentle diuresis and antibiotics should continue as well. We will be happy to follow him through his hospital course and make further recommendations as appro priate. Lloyd Yuen MD cc: [phone] TT: 06/24/2016 14:30:45 Confirmation # [id number] Dictation # [id number] melanie
--- NOTE | 2016-06-24 23:02 | DS ---
HISTORY OF PRESENT ILLNESS: The patient is a 81-year-old, seen and examined. Seemed to be much more awake, alert, oriented. He was brought in because of altered mental status. The patient was recent ly diagnosed with AFib. He was started on some anticoagulant, but stopped that. She thought c onfusion was because of that. Initial workup was done that is negative. The patient is found to be deconditioned, so transferred to TCU for further evaluation. PHYSICAL EXAMINATION: GENERAL: The patient is awake and alert, communicative. VITAL SIGNS: He is afebrile, pulse 63, respirations 18, blood pressure 119/70. LUNGS: Bilateral good airflow, no rhonchi or crackle. HEART: S1, S2 audible. No murmur. ABDOMEN: Soft, nontender, no rebound, no guarding. NEUROLOGIC: The patient is awake and alert, communicative, ambulatory with unstable gait. LABORATORY EXAM: His cholesterol was 125, HDL is 27, LDL is 84. ASSESSMENT AND PLAN: 1. Status post altered mental status. 2. Hypertension. 3. Newly diagnosed atrial fibrillation. 4. Pleural effusion. PLAN: The patient is being transferred to TCU where he will receive physical therapy and I will foll ow up patient in TCU. Sarah Thornton MD cc: [phone] TT: 06/24/2016 23:02:12 roseann
--- NOTE | 2016-06-26 15:19 | PQF SEPSIS ---
06/26/16 Dr. Magdalene Ann's consult of 06/22 states "altered mental status, rule out sepsis. " Was sepsis ruled out, ruled in, undetermined? If sepsis was ruled in, was this present on admission? If sepsis was ruled out, please clarify etiology of altered mental status ( pneumonia? Alzheimer's dementia? Other?). Thank you. Clarification of your documentation is requested to better reflect the severity of illness and intensity of treatment of your patient. Indicators present [] Temp < 96.8 or > 100.4 [] WBC count > 12,000/mm3 or <000/mm3 or 10% immature neutrophils [] Heart Rate > 90 [] Respiratory Rate > 20 [] Fever or hypothermia [] Chills [] Positive blood cultures [] Hypotension [] Metabolic acidosis (Elevated lactate level, anion gap or reduced blood pH) [] Acute confusion /Altered Mental Status [] Shock [] Other: [] Location in the medical record that reflects the above clinical findings: [] Treatment Provided: [] PHYSICIAN'S RESPONSE Based on your medical judgment of the clinical indicators outlined above, are you treating this patient for a known or suspected: [] Sepsis / Septicemia Please specify organism if known [] [] SIRS (Systemic Inflammatory Response Syndrome) [] Severe Sepsis (Sepsis with Associated Organ Dysfunction) [] Fever of Unknown Origin [] Other, please indicate: [] [x] If Unable to Determine, please check the box, sign and date. Present On Admission (POA) Indicator: [x] Present at the time of admission [] Not present at the time of admission [] Clinically Undetermined In responding to this query, please exercise your independent professional judgment. The fact that a question is asked does not imply that any particular answer is desired or expected. Thank you for your clarification on this documentation. If you have any questions please call:[ ] * Thank you, [ ] nurse aide evaluator ODETTE
--- NOTE | 2016-06-27 13:16 | PQF GENQUE ---
Dr. Thornton, Please clarify your previous query answer on this patient. You checked off "undetermined," I presume for the sepsis question. However, you also checked "present on admission." Is this referring to the altered mental status? If so, please clarify the etiology of altered mental status that was present on admission. Thank you. Clarification of your documentation is requested to better reflect the severity of illness and intensity of treatment of your patient. Indicators present [] Specify: [] [] Specify: [] [] Specify: [] [] Specify: [] Location in the medical record that reflects the above clinical findings: [] Treatment Provided: [] PHYSICIAN'S RESPONSE Based on your medical judgment of the clinical indicators outlined above please clarify the following: [] Practitioner response [] If unable to determine, please check the box, sign and date. Present On Admission (POA) Indicator: [] Present at the time of admission [x] Not present at the time of admission [] Clinically Undetermined In responding to this query, please exercise your independent professional judgment. The fact that a question is asked does not imply that any particular answer is desired or expected. Thank you for your clarification on this documentation. If you have any questions please call:[ ] * Thank you, [ ] sling operator ODETTE
== END 2016-06-24 15:18 | DRG 56 ==
LOC: ED 17:06 → ERH 19:27 → 2RSO 23:08 → 5RNO 06-23 18:45
PROVIDERS: ADMIT Internal Medicine; ATTEND Internal Medicine
DX: G30.9 Alzheimer's disease, unspecified (principal); J18.9 Pneumonia, unspecified organism; J90 Pleural effusion, not elsewhere classified; I31.3 Pericardial effusion (noninflammatory); I11.9 Hypertensive heart disease without heart failure; F02.81 Dementia in other diseases classified elsewhere, unspecified severity, with behavioral disturbance; I50.9 Heart failure, unspecified; I48.91 Unspecified atrial fibrillation; M15.9 Polyosteoarthritis, unspecified; Z85.46 Personal history of malignant neoplasm of prostate; Z79.82 Long term (current) use of aspirin; F17.290 Nicotine dependence, other tobacco product, uncomplicated; Z92.3 Personal history of irradiation

== ENCOUNTER 2016-06-24 15:03 | Inpatient (IN) | payer OTHER, MEDICARE ==
[2016-06-24 15:59] VITALS: BMI 33.4
[2016-06-24] MEDS ORDERED: Albuterol-Ipratrop 3 mg / 0.5 (3 ml) UD IH PRN (16:07)
[2016-06-25] MEDS: cefTRIAXone 1 gm 1 GM/100 ML BAG IVPB SCH (05:15)
[2016-06-25] MEDS: Metoprolol Succinate 25 mg XL Tab PO SCH (08:28)
[2016-06-25] MEDS ORDERED: cefTRIAXone 1 gm 1 GM/100 ML BAG IVPB SCH (10:00)
--- NOTE | 2016-06-25 21:11 | PN ---
DATE: 06/25/2016 SUBJECTIVE: The patient has no complaints of any headaches or dizziness. He says he feels well. No nausea. He has been tolerating his diet. He sleeps well. PHYSICAL EXAMINATION: VITAL SIGNS: Temperature is 98.4, pulse is 73, blood pressure 99/72, respiration is 18. GENERAL: The patient comfortable, in no acute distress. HEENT: Anicteric sclerae. Moist mucosa. NECK: No JVD or adenopathy. CARDIAC: S1/S2. No murmurs. No rubs. Regular. RESPIRATORY: Clear to auscultation bilaterally. No wheezes, rales, or rhonchi. Good air entry. ABDOMEN: Bowel sounds are positive, soft, nontender, and nondistended. EXTREMITIES: No edema. Has 1+ pulses. ASSESSMENT: 1. Delirium, improved. 2. Hypertension. 3. Atrial fibrillation. PLAN: The patient is on aspirin. He is going to continue Aricept for dementia. He is on Eliquis fo r his atrial fibrillation. He is going to be on Namenda for his dementia. The patient is on Tylenol as needed. He is on the transitional care unit and will continue there. Bright Neil MD cc: [phone] TT: 06/25/2016 21:10:45 Confirmation # [id number] Dictation # [id number] mn
[2016-06-26] MEDS: cefTRIAXone 1 gm 1 GM/100 ML BAG IVPB SCH (05:13)
[2016-06-26] MEDS: Metoprolol Succinate 25 mg XL Tab PO SCH (10:53)
--- NOTE | 2016-06-26 13:22 | PN ---
DATE: 06/26/2016 The patient is a 81-year-old, seen and examined, lying in bed, comfortable, eating and tolerating. PHYSICAL EXAMINATION: VITAL SIGNS: He is afebrile, pulse 82, respirations 18, blood pressure 96/65. LUNGS: Bilateral good airflow, no rhonchi or crackle. HEART: S1, S2 audible. ABDOMEN: Soft, nontender, obese. No hepatosplenomegaly. NEUROLOGIC: He is awake and alert, communicative. ASSESSMENT: 1. Status post altered mental status, seems to be doing well. 2. Dementia. 3. Bilateral leg edema. 4. History of atrial fibrillation. 5. Hypertension. 6. Negative blood culture and urine culture. PLAN: I will discontinue his IV antibiotic. We will continue to diurese him. Encourage physical th erapy and will reevaluate patient in a.m. Sarah Thornton MD cc: [phone] TT: 06/26/2016 13:21:33 Confirmation # [id number] Dictation # [id number] en
[2016-06-27] MEDS: Enoxaparin 30 mg Syringe SC SCH (05:13)
[2016-06-27] MEDS: Metoprolol Succinate 25 mg XL Tab PO SCH (08:54)
[2016-06-27] MEDS ORDERED: Enoxaparin 30 mg Syringe SC SCH (10:00)
--- NOTE | 2016-06-27 12:29 | CON ---
DATE: 06/27/2016 HISTORY OF PRESENT ILLNESS: This is a 81-year-old male with past medical history of dementia, prosta te cancer, arthritis, and hypertension, transferred to [facility] for rehab. The patient was recently foun d to be in atrial fibrillation and was started on metoprolol and Xarelto, and called to evaluate the patient sitting comfortably. PAST MEDICAL HISTORY: Prostate cancer, arthritis, hypertension. ALLERGIES: None. SOCIAL HISTORY: Smokes, does not drink. REVIEW OF SYSTEMS: A 10-point review of system was negative. PHYSICAL EXAMINATION: HEENT: Normocephalic, atraumatic. NECK: Supple. NEUROLOGIC: Alert, awake, oriented x 3. No aphasia. Cranial nerves II-XII were tested. Pupils rio ctive. EOM intact. Visual gerber full. No facial asymmetry. Tongue is midline. Spontaneous move ment of the extremities noted. Deep tendon reflexes 1+. Both plantars are downgoing. Sensory appea rs intact. Cerebellar gait deferred. IMPRESSION: The patient's syncope less likely atrial fibrillation, and also dementia superimposed on intermittent confusional state. Continue present management. We will follow up. Mark Veronica MD cc: [id number] TT: 06/27/2016 12:28:51 Confirmation # [id number] Dictation # [id number] melanie
--- NOTE | 2016-06-27 13:06 | PN ---
DATE: 06/27/2016 SUBJECTIVE: The patient is a 81-year-old, seen and examined, sitting in chair, seems to be comfortab le, awake and alert, communicative, answers simple questions. PHYSICAL EXAMINATION: VITAL SIGNS: He is afebrile, pulse 74, respirations 18, blood pressure 83/57. LUNGS: Bilateral fair airflow, no rhonchi or crackle. HEART: S1, S2 audible. ABDOMEN: Soft, nontender, no rebound. Obese. No hepatosplenomegaly. NEUROLOGIC: The patient is awake and alert, communicative, answers simple questions. ASSESSMENT: 1. Status post altered mental status. 2. Worsening of dementia. 3. Bilateral leg edema. 4. Hypotension. PLAN: We will continue patient on current medication that includes aspirin, Aricept. Continue him o n Eliquis for the recent diagnosis of A-fib. Since his blood pressure is running low, I will even di scontinue his metoprolol, reevaluate patient in a.m. Continue physical therapy. Sarah Thornton MD cc: [phone] TT: 06/27/2016 13:05:11 Confirmation # [id number] Dictation # [id number] tn
[2016-06-28] MEDS: Enoxaparin 30 mg Syringe SC SCH (05:41)
--- NOTE | 2016-06-28 09:26 | PN ---
DATE: 06/28/2016 SUBJECTIVE: The patient is seen sitting in bed in the TCU. He is currently comfortable. He does quiroz ve some exertional dyspnea. He is unaware of any palpitations. CURRENT MEDICATIONS: Include Aricept 5 mg daily, aspirin once daily, Eliquis 2.5 mg b.i.d., DuoNeb i nhaler, Lovenox once daily, Namenda 28 mg daily, Seroquel 25 mg at bedtime. OBJECTIVE: GENERAL: He is an elderly man who appears comfortable at rest. VITAL SIGNS: His blood pressure is 104/74 with a pulse of 80, respirations are 16. He is currently afebrile. HEENT: No JVD. CHEST: A few scattered rhonchi. HEART: PMI displaced laterally with an irregularly irregular rhythm. ABDOMEN: Soft and nontender with normoactive bowel sounds. EXTREMITIES: No edema. DIAGNOSTIC DATA: No blood work pending from this morning. IMPRESSION: 1. Community-acquired pneumonia, remains on antibiotic therapy. 2. Atrial fibrillation, which apparently is of recent onset. Beta harley has been withheld given t ransient low blood pressure yesterday. His heart rate appears to be controlled at present. 3. Mild mitral and aortic insufficiency. 4. Baseline dementia. RECOMMENDATIONS: At this time, his current management can continue. Aspirin can be withheld to redu ce risk of bleeding. Given his body weight, 5 mg b.i.d. of Eliquis would be appropriate. Lovenox ca n be withheld for DVT prophylaxis, given the use of Eliquis. If his rate increases, low dose rate co ntrol therapy can be reinstituted. In general, conservative care appears most appropriate. Lloyd Yuen MD cc: [phone] TT: 06/28/2016 09:25:41 Confirmation # [id number] Dictation # [id number] mn
--- NOTE | 2016-06-28 19:38 | PN ---
DATE: 06/28/2016 The patient is a 81-year-old, seen and examined while in therapy department. According to therapist, doing well. PHYSICAL EXAMINATION: VITAL SIGNS: He is afebrile, pulse 84, respirations 14, blood pressure 96/60. LUNGS: Bilateral good airflow, no rhonchi or crackle. HEART: S1, S2 audible. ABDOMEN: Soft, obese, nontender, no rebound, no guarding. EXTREMITIES: Bilateral legs +2 edema. ASSESSMENT: 1. Status post altered mental status. 2. Worsening dementia. 3. Bilateral leg edema. 4. New onset of atrial fibrillation. PLAN: We will continue patient on Aricept. He is on nebulizer treatment. He is getting Eliquis. H e is on Namenda. I will continue him on Seroquel at bedtime and discussed with patient's at [facility]. We will keep his leg elevated and apply MARLIN bandage. Will reevaluate patient in a.m. Sarah Thornton MD cc: [phone] TT: 06/28/2016 19:37:45 Confirmation # [id number] Dictation # [id number] en
[2016-06-29 12:49] VITALS: RESP 18
--- NOTE | 2016-06-29 17:42 | PN ---
DATE: 06/29/2016 SUBJECTIVE: The patient is a 81-year-old sitting in chair, comfortable, has bilateral leg swelling, no nausea, vomiting, no diarrhea. Eating and tolerating. PHYSICAL EXAMINATION: VITAL SIGNS: He is afebrile, pulse 85, respirations 18, blood pressure 106/63. LUNGS: Bilateral good airflow, no rhonchi or crackle. HEART: S1, S2 audible. ABDOMEN: Soft, nontender, no rebound, no guarding. NEUROLOGIC: The patient is awake and alert, communicative. EXTREMITIES: Bilateral leg +2 edema. ASSESSMENT AND PLAN: 1. Dementia. 2. Chronic atrial fibrillation, currently on Eliquis. He is getting Namenda and Aricept. Will disc ontinue his nebulizer treatment. Discussed with the patient's nurse taking care of him. Apply his b andage and keep legs elevated. Continue physical therapy and will reevaluate the patient in a.m. Sarah Thornton MD cc: [phone] TT: 06/29/2016 17:42:17 Confirmation # [id number] Dictation # [id number] melanie
--- NOTE | 2016-06-30 14:59 | PN ---
DATE: 06/30/2016 The patient is a 81-year-old, seen and examined sitting in chair. Seems to be comfortable. His leg swelling has improved. Mental status is same. PHYSICAL EXAMINATION: GENERAL: He his awake and alert, able to answer simple questions. VITAL SIGNS: He is afebrile, pulse 97, respirations 18, blood pressure 99/69. LUNGS: Bilateral fair airflow, no rhonchi or crackle. HEART: S1, S2 audible. ABDOMEN: Soft, nontender, no rebound, no guarding. NEUROLOGIC: The patient is awake and alert, able to communicate. EXTREMITIES: Bilateral legs, +1 edema. ASSESSMENT AND PLAN: 1. Status post altered mental status. Seems to be improving. 2. Dementia. 3. Atrial fibrillation. He is not on any rate controlling medication. I will start him on digoxin. Will give first dose today. Because of his low blood pressure, he cannot be given beta harley or verapamil/calcium channel harley. Will start him on digoxin and possible discharge plan in the a.m. Sarah Thornton MD cc: [phone] TT: 06/30/2016 14:58:20 Confirmation # [id number] Dictation # [id number] mn
[2016-07-01 06:56] VITALS: BP 102/68; PULSE 69; TEMP 98.4; O2SAT 97
[2016-07-01] MEDS ORDERED: Digoxin 125 mcg (0.125 mg) Tab PO SCH (14:00)
--- NOTE | 2016-07-01 20:02 | DS ---
The patient is 81 years old, who was admitted with altered mental status. His neurological workup so far was negative. He did not have any positive cultures. The initial impression was possible pneum onia; however, CT scan was negative other than bilateral basilar atelectasis, no infiltrate was found . Blood culture done on 06/21 and urine culture were negative also. The patient was evaluated by alysha rologist also. The patient was started on Namenda and Aricept was added. The patient was recently d iagnosed with AFib. He was started on Eliquis and metoprolol, but the patient stopped giving it because she thought that has increased his confusion and he was brought to Emergency Room. He was f ound to have bilateral leg edema, although echo was unremarkable, probably is related to his obesity and being nonambulatory. PHYSICAL EXAMINATION: Today: GENERAL: He is awake and alert, communicative, gets forgetful by the end of the day. VITAL SIGNS: He is afebrile, pulse 69, respirations 18, blood pressure 102/68. LUNGS: Bilateral fair airflow, no rhonchi or crackle. HEART: S1, S2 audible. No murmur. ABDOMEN: Soft, obese, nontender, no rebound, no guarding. NEUROLOGIC: He is awake and alert, communicative. EXTREMITIES: Bilateral leg +1 edema. ASSESSMENT AND PLAN: 1. Worsening dementia. 2. New onset of atrial fibrillation. 3. Hypotension. PLAN: Will give metoprolol 12.5 daily for rate control. He will continue Eliquis. He is given a pr escription of Aricept 5 mg daily. He is to continue Namenda. He will be discharged home today to fo llow up with his PMD as an outpatient. Sarah Thornton MD cc: [phone] TT: 07/01/2016 20:01:02 roseann
== END 2016-07-01 14:47 | disposition home or self-care (01) | DRG 884 ==
LOC: TRCU 15:03
PROVIDERS: ADMIT Internal Medicine; ATTEND Internal Medicine
PROC: F07Z9ZZ Gait Training/Functional Ambulation Treatment (ICD-10-PCS; principal; 2016-06-25)
PROC: F08Z4ZZ Home Management Treatment (ICD-10-PCS; 2016-06-26)
DX: F03.90 Unspecified dementia, unspecified severity, without behavioral disturbance, psychotic disturbance, mood disturbance, and anxiety (principal); J18.9 Pneumonia, unspecified organism; Z79.2 Long term (current) use of antibiotics; I48.2 Chronic atrial fibrillation; Z79.01 Long term (current) use of anticoagulants; I08.0 Rheumatic disorders of both mitral and aortic valves; I10 Essential (primary) hypertension; R60.0 Localized edema; I95.9 Hypotension, unspecified; M19.90 Unspecified osteoarthritis, unspecified site; Z85.46 Personal history of malignant neoplasm of prostate; E66.9 Obesity, unspecified

== ENCOUNTER 2016-09-13 15:56 | Emergency (ER) | payer MEDICARE ==
[2016-09-13 16:08] VITALS: BP 151/78; PULSE 84; RESP 18; TEMP 98; O2SAT 97; BMI 30.5
--- NOTE | 2016-09-13 17:21 | CT ---
PROCEDURE: CT HEAD WITHOUT CONTRAST. HISTORY: trauma COMPARISON: Brain MRI without contrast performed 06/22/16, noncontrast head CT performed 06/21/16 TECHNIQUE: Axial computed tomography images were obtained through the head/brain without intravenous contrast. Radiation dose: Total exam DLP = 822.62 mGy-cm. This CT exam was performed using one or more of the following dose reduction techniques: Automated exposure control, adjustment of the mA and/or kV according to patient size, and/or use of iterative reconstruction technique. FINDINGS: HEMORRHAGE: No intracranial hemorrhage. BRAIN: Diffuse atrophy with prominence of the ventricles and sulci noted. No mass effect or edema. Dense intracranial atherosclerotic calcifications. 4 mm probable right basal ganglia lacunar infarct, appears chronic. Mild scattered white matter hypodensities, which are nonspecific, but often seen with chronic microvascular ischemic disease. Please note that MRI with diffusion imaging is more sensitive in the detection of acute ischemic event. VENTRICLES: No hydrocephalus. CALVARIUM: Unremarkable. PARANASAL SINUSES: Complete opacification of the included portions of the right maxillary sinus including high density contents. MASTOID AIR CELLS: Unremarkable as visualized. No inflammatory changes. OTHER FINDINGS: None. IMPRESSION: Generalized atrophy. Nonspecific white matter changes. 4 mm probable right basal ganglia lacunar infarct, appears chronic. Complete opacification of the imaged portions, right maxillary sinus ; sinus contents appear heterogeneous. Increased attenuation of the sinus contents may indicate proteinaceous material or fungal colonization.
--- NOTE | 2016-09-13 18:09 | ED PDOC ---
Arrival/HPI - General Chief Complaint: Trauma Time Seen by Provider: 09/13/16 16:04 Historian: Patient, Family - History of Present Illness Narrative History of Present Illness (Text): 09/13/16 19:43 81 yo M w/ pmh of dementia and A fib, presents with head injury after he missed his footing as he was walking down the stairs and fell backwards, hitting the back of his head. States that he denies having any symptoms prior to the fall. Prior to the fall, denies any dizziness, headache, CP, SOB, palpitations, fever , chills, N/V. As per pt and family, pt has been feeling well. He was recently admitted to the hospital and was d/c 1 week ago for pneumonia, during that time , the pt's dementia was worse and he was unable to perform ADLs and was very confused. Since his d/c the pt has been doing well at home and can perform his normal ADLs without any assistance, he has also had improvement of his memory. Here in the ER the pt only c/o a mild headache where he hit his head. Denies any LOC, nausea, neck pain, back pain, chest pain, or any other injury. Of note , pt states that he takes xarelto. Past Medical History - Provider Review Nursing Documentation Reviewed: Yes - Infectious Disease Hx of Infectious Diseases: None - Tetanus Immunization Tetanus Immunization: Up to Date - Cardiac Hx Cardiac Disorders: Yes Hx Congestive Heart Failure: Yes Hx Hypertension: Yes - Pulmonary Hx Respiratory Disorders: No - Neurological Hx Neurological Disorder: Yes Hx Dementia: Yes - HEENT Hx HEENT Disorder: Yes (eyeglasses) Hx Cataracts: Yes (right eye sx) - Renal Hx Renal Disorder: No - Endocrine/Metabolic Hx Endocrine Disorders: No - Hematological/Oncological Hx Blood Disorders: Yes Hx Cancer: Yes (prostate ca with radiation tx) Other/Comment: prostate ca 14 yrs ago had sx chemo and seeds as per - Integumentary Hx Dermatological Disorder: No Other/Comment: ble discolored brown edematous skin - Musculoskeletal/Rheumatological Hx Musculoskeletal Disorders: Yes Hx Falls: Yes Hx Fractures: Yes (ribs fell over 5 yrs ago) Hx Unsteady Gait: Yes - Gastrointestinal Hx Gastrointestinal Disorders: No - Genitourinary/Gynecological Hx Genitourinary Disorders: No - Psychiatric Hx Psychophysiologic Disorder: No Hx Substance Use: No - Past Surgical History Past Surgical History: Unable to Obtain - Anesthesia Hx Anesthesia: Yes Hx Anesthesia Reactions: No Hx Malignant Hyperthermia: No - Suicidal Assessment Feels Threatened In Home Enviroment: No Family/Social History - Physician Review Nursing Documentation Reviewed: Yes Family/Social History: No Known Family HX Smoking Status: cigars Hx Alcohol Use: No Hx Substance Use: No Allergies/Home Meds Allergies/Adverse Reactions: Allergies No Known Allergies Allergy (Verified 09/13/16 16:01) Review of Systems - Review of Systems Constitutional: Normal. absent: Fatigue, Weight Change, Fevers Respiratory: Normal. absent: SOB, Cough, Sputum Cardiovascular: Normal. absent: Chest Pain, Palpitations, Edema Gastrointestinal: Normal. absent: Abdominal Pain, Stool Changes, Hematochezia Musculoskeletal: Normal, Arthralgias. absent: Back Pain, Neck Pain Skin: Normal. absent: Rash, Pruritis, Skin Lesions Neurological: Normal. absent: Headache, Dizziness, Focal Weakness Psychiatric: Normal, Other (h/o dementia). absent: Anxiety, Depression, Suicidal Ideation Physical Exam Vital Signs Reviewed: Yes Vital Signs Temp Pulse Resp BP Pulse Ox 09/13/16 16:05 98.0 F 84 18 151/78 H 97 Temperature: Afebrile Blood Pressure: Hypertensive Pulse: Regular Respiratory Rate: Normal Appearance: Positive for: Well-Appearing, Non-Toxic, Comfortable Pain Distress: None Mental Status: Positive for: other (Alert and oriented to self and place, not time, pt was able to answer all questions appropriately and provide an adequate history) - Systems Exam Head: Present: Other ((+) abrasion with swelling to the R occipital scalp with no active bleeding). No: Ecchymosis, Laceration Pupils: Present: PERRL Extroacular Muscles: Present: EOMI Conjunctiva: Present: Normal Ears: Present: Normal Mouth: Present: Moist Mucous Membranes Nose (External): Present: Atraumatic Neck: Present: Normal Range of Motion. No: MIDLINE TENDERNESS Respiratory/Chest: Present: Clear to Auscultation, Good Air Exchange. No: Respiratory Distress, Accessory Muscle Use, Wheezes, Rhonchi Cardiovascular: Present: Regular Rate and Rhythm, Normal S1, S2. No: Murmurs Abdomen: No: Tenderness, Distention, Rebound, Guarding Back: Present: Normal Inspection. No: CVA Tenderness, Midline Tenderness, Paraspinal Tenderness Upper Extremity: Present: Normal Inspection, Normal ROM, NORMAL PULSES, Other (( +) abrasion to the L elbow). No: Edema, Tenderness, Swelling Lower Extremity: Present: Normal Inspection, NORMAL PULSES. No: Edema, Tenderness, Swelling Neurological: Present: GCS=15, CN II-XII Intact, Speech Normal, Motor Func Grossly Intact, Normal Sensory Function, Normal 2Pt Descrimination Skin: Present: Warm, Dry, Normal Color. No: Rashes Psychiatric: Present: Alert, Normal Insight, Normal Concentration, Normal Affect , Normal Mood Medical Decision Making ED Course and Treatment: 09/13/16 19:50 81 yo M with pmh of dementia, A fib on xarelto, s/p fall from the stairs, sustained injury to the occipital scalp. Plan: - CT head - Tylenol Wounds cleaned and dressed. Pt returned from CT without any incident. CT head results reviewed and shows no acute findings. Results d/w the pt and with family. Advised that due to pt's history of dementia and his recent improvement , especially in regards to ADLs, that it is best for the pt to be d/c home to not break his routine and encourage continued improvement of his memory. Pt and family were instructed to follow up with pmd 1-2 days without fail and to return to the ER at any time for any new or worsening symptoms. The pt and family agree with this plan and they feel comfortable taking the pt home. - RAD Interpretation Narrative RAD Interpretations (Text): 09/13/16 18:09 CT HEAD W/O CONTRAST: FINDINGS: HEMORRHAGE: No intracranial hemorrhage. BRAIN: Diffuse atrophy with prominence of the ventricles and sulci noted. No mass effect or edema. Dense intracranial atherosclerotic calcifications. 4 mm probable right basal ganglia lacunar infarct, appears chronic. Mild scattered white matter hypodensities, which are nonspecific, but often seen with chronic microvascular ischemic disease. Please note that MRI with diffusion imaging is more sensitive in the detection of acute ischemic event. VENTRICLES: No hydrocephalus. CALVARIUM: Unremarkable. PARANASAL SINUSES: Complete opacification of the included portions of the right maxillary sinus including high density contents. MASTOID AIR CELLS: Unremarkable as visualized. No inflammatory changes. OTHER FINDINGS: None. IMPRESSION: Generalized atrophy. Nonspecific white matter changes. 4 mm probable right basal ganglia lacunar infarct, appears chronic. Complete opacification of the imaged portions, right maxillary sinus ; sinus contents appear heterogeneous. Increased attenuation of the sinus contents may indicate proteinaceous material or fungal colonization. Radiology Orders: 09/13/16 16:50 HEAD W/O CONTRAST [CT] Stat - Medication Orders Current Medication Orders: Discontinued Medications Acetaminophen (Tylenol 325mg Tab) 975 mg PO STAT STA Stop: 09/13/16 16:52 Last Admin: 09/13/16 17:40 Dose: 975 mg - PA / FREELANCE [employer]IC DES[employer]ER / Resident Statement / has reviewed & agrees with the documentation as recorded. Disposition/Present on Arrival - Present on Arrival Any Indicators Present on Arrival: No History of DVT/PE: No History of Uncontrolled Diabetes: No Urinary Catheter: No History of Decub. Ulcer: No History Surgical Site Infection Following: None - Disposition Have Diagnosis and Disposition been Completed?: Yes Diagnosis: Head trauma, Fall Disposition: HOME/ ROUTINE Disposition Time: 18:10 Patient Plan: Discharge Condition: STABLE Discharge Instructions (ExitCare): Head Injury (ED) Print Language: BRAZILIAN Additional Instructions: Follow up with pmd in 1-2 days without fail. Return to the ER at any time for any new or worsening symptoms. Follow up CT head findings with ENT referral provided : Complete opacification of the imaged portions, right maxillary sinus ; sinus contents appear heterogeneous. Increased attenuation of the sinus contents may indicate proteinaceous material or fungal colonization. Referrals: PCP,BERENICE [Primary Care Provider] - Follow up with primary Rene Tello DO [Staff Provider] - Follow up with primary
== END 2016-09-13 18:25 | disposition home or self-care (01) ==
LOC: ED 15:56
DX: S09.90XA Unspecified injury of head, initial encounter (principal); W10.8XXA Fall (on) (from) other stairs and steps, initial encounter; Y93.89 Activity, other specified; Y92.89 Other specified places as the place of occurrence of the external cause